=== PATIENT | male | born 1975 | race Two or more races ===

== ENCOUNTER 2023-09-10 13:44 | Emergency (ER) | payer BC, SELFPAY ==
[2023-09-10 13:48] VITALS: BP 180/115; PULSE 97; RESP 18; TEMP 36.5; O2SAT 98; BMI 30.1
--- NOTE | 2023-09-10 14:04 | ED.GENADULT ---
HPI - General Adult General Date Seen: 09/10/23 Chief complaint: Abdominal Pain Stated complaint: Abdonimal and bowel pain Time Seen by Provider: 09/10/23 14:04 History of Present Illness HPI narrative: 48-year-old male presenting to the ER today for pain involving his she left side of his torso including his left lower ribs, back, and abdominal pain. Pain is been ongoing for about a week and getting steadily worse. His pain is more significant in the morning intense to get better through the day. The pain is mostly located in his left upper quadrant and epigastrium but also a little bit in his left flank and left lower ribs. It is painful it hurts to take a deep breath. He is not having any fever. No vomiting or diarrhea. He is nauseous today. He did pass normal stool last night. He has also had a cough with production of sputum that is been present for about a month or so. Initially the cough he thought was from cold got better then came back a couple of weeks ago. It has been productive of a lot of green sputum. No fevers. No shortness of breath He has diabetes and is supposed to be taking insulin but it sounds like he does not take it every day. He does not routinely track his blood sugar. no recent travel. No weight loss. No recent night sweats. Related Data Previous Rx's Medication Instructions Recorded doxycycline hyclate 100 mg capsule 100 mg PO BID #14 caps 09/10/23 omeprazole 40 mg capsule,delayed 40 mg PO DAILY #20 caps 09/10/23 release Allergies Allergy/AdvReac Type Severity Reaction Status Date / Time No Known Drug Allergies Allergy Verified 09/10/23 13:55 [facility] Social History Smoking Status: Never smoker How often do you have a drink containing alcohol: never AUDIT-C Alcohol total score: 0 Non-prescribed substance use: denies use service: No Exam Narrative: Exam Narrative: Constitutional: Appears well-developed and well-nourished. Alert. Conversant. Non toxic. HENT: Head: Atraumatic. Nose: Nose normal. Mouth/Throat: Oral mucosa is clear and moist. no trismus. Pharynx normal. Tonsils symmetric. No tonsillar enlargement, erythema, or exudate. Eyes: Conjunctivae normal. EOM normal. Pupils equal, round, and reactive to light. No scleral icterus. Neck: Normal range of motion. Neck supple. No tracheal deviation present. Cardiovascular: Normal rate, regular rhythm. No gallop. No friction rub. No murmur heard. Symmetric radial artery pulses Pulmonary/Chest: Effort normal. No stridor. No respiratory distress. No wheezes. No rales. No rhonchi . No tenderness. Abdominal: Soft. Bowel sounds diminished. No distension. No mass. LUQ> epigastric tenderness. No rebound. No guarding. No right-sided tenderness. No Dave side. No lower abdominal tenderness. Perhaps mild left CVA tenderness. No right sided CVA tenderness. Musculoskeletal: RUE: Normal range of motion. No tenderness. No deformity LUE: Normal range of motion. No tenderness. No deformity RLE: Normal range of motion. No edema. No tenderness. No deformity LLE: Normal range of motion. No edema. No tenderness. No deformity Neurological: Alert and oriented to person, place, and time. Normal strength. CN II-VII intact. No sensory deficit. GCS eye subscore is 4. GCS verbal subscore is 5. GCS motor subscore is 6. Normal coordination Skin: Skin is warm and dry. No rash noted. No pallor. Normal capillary refill. Psychiatric: Normal mood. Normal affect. Const: Vital Signs, click to edit/add: Vital Signs - 24 hr 09/10/23 13:48 09/10/23 17:57 Temperature 97.7 F Pulse Rate [Pulse Oximeter] 97 90 Respiratory Rate 18 20 Blood Pressure [Ri ght Upper Arm] 180/115 H 193/148 H Pulse Oximetry 98 Oxygen Delivery Me thod Room Air Course Vital Signs Vital signs: Initial Vital Signs Temperature 97.7 F 09/10/23 13:48 Temperature Source Temporal Artery Scan 09/10/23 13:48 Pulse Rate 97 09/10/23 13:48 Pulse Rhythm Regular 09/10/23 13:48 Pulse Strength 3+ Normal 09/10/23 13:48 Respiratory Rate 18 09/10/23 13:48 Blood Pressure 180/115 H 09/10/23 13:48 Blood Pressure Mean 136 H 09/10/23 13:48 Blood Pressure Position Supine 09/10/23 13:48 Pulse Oximetry 98 09/10/23 13:48 Oxygen Delivery Method Room Air 09/10/23 13:48 Vital Signs Temperature 97.7 F 09/10/23 13:48 Pulse Rate 97 09/10/23 13:48 Respiratory Rate 18 09/10/23 13:48 Blood Pressure 180/115 H 09/10/23 13:48 Pulse Oximetry 98 09/10/23 13:48 Oxygen Delivery Method Room Air 09/10/23 13:48 Temperature 97.7 F 09/10/23 13:48 Pulse Rate 90 09/10/23 17:57 Respiratory Rate 20 09/10/23 17:57 Blood Pressure 193/148 H 09/10/23 17:57 Pulse Oximetry 98 09/10/23 13:48 Oxygen Delivery Method Room Air 09/10/23 13:48 Medical Decision Making MDM Narrative Medical decision making narrative: This is a very pleasant 48-year-old male with a history of hypertension and diabetes who presents to the ER today with cough ongoing for the past several weeks now productive for the past week or so and also left upper quadrant, left flank, left lower rib pain. In terms of the cough, chest x-ray is negative for pneumonia. Given duration of cough would hold off on influenza/COVID PCR. He is well outside the window for any treatment with Tamiflu or Paxlovid. Chest x-ray is obtained is fortunately negative for any sign of a left lower with infiltrate, left-sided pleural effusion or empyema, or left-sided rib fracture. He is not having any wheezing or bronchospasm on his clinical exam. No exam evidence for chest wall bruising or shingles. Location of the cough not consistent with costochondritis. Consider intra-abdominal causes for his left upper quadrant abdominal pain. Laboratory workup shows no evidence for of pancreatitis. White count 10 hemoglobin are normal. No evidence for LFT abnormality or right upper quadrant tenderness suggest biliary colic. Urinalysis normal. CT scan is obtained and shows no evidence for obstructing kidney stone. No evidence for any splenic enlargement or other splenic abnormality causing left upper quadrant abdominal pain. No evidence for diverticulitis, colitis, bowel obstruction, perforation, abscess. No right lower quadrant pain and no radiographic abnormality to suggest appendicitis. At this point the etiology the pain is unclear. Consider possible gastritis or peptic ulcer disease which would be not not detectable on labs and CT imaging. At this point no evidence for any GI bleeding based on absence of any melanotic stools and normal hemoglobin and normal vitals. Patient is comfortable plan for discharge home. Recommend close outpatient follow-up the primary care for recheck. Also to help better manage his ongoing diabetes and high blood pressure. Reviewed with him that uncontrolled diabetes and high blood pressure can lead to long-term health problems and he agrees to follow-up. Prescription for omeprazole to treat empirically for pop supple peptic ulcer disease and for antibiotic to treat his cough. No clear evidence for pneumonia but based on duration of cough and new worsening purulence we will put him on a course of antibiotics Lab Data Labs: Lab Results 09/10/23 09/10/23 Range/Units 14:30 14:35 WBC 7.18 (4.50-11.00) K/uL RBC 5.23 (4.30-5.90) m/uL Hgb 15.0 (13.5-17.5) gm/dL Hct 43.1 (37.0-53.0) % MCV 82 (80-100) fL MCH 29 (26-34) pg MCHC 35 (32-36) gm/dL RDW Coeff of Lizeth 11.6 (11.5-15.5) % Plt Count 251 (140-440) K/uL Neut % (Auto) 62.7 (42.0-72.0) % Lymph % (Auto) 28.0 (20-44) % Rains % (Auto) 6.5 (0.0-11.0) % Eos % (Auto) 1.7 (0.0-7.0) % Baso % (Auto) 0.4 (0.0-3.0) % Neut # (Auto) 4.50 (1.7-7.0) K/uL Lymph # (Auto) 2.01 (0.90-2.90) K/uL Rains # (Auto) 0.50 (0.00-0.90) K/UL Eos # (Auto) 0.12 (0.00-0.50) K/uL Baso # (Auto) 0.03 (0.00-0.30) K/uL Abs Immat Gran (auto) 0.05 (0.00-0.30) K/uL Imm/Tot Granulo (auto) 0.7 % Sodium 137 (135-149) mmol/L Potassium 3.5 L (3.6-5.1) mmol/L Chloride 101 (96-114) mmol/L Carbon Dioxide 30 (20-32) mmol/L Anion Gap 6 L (7-15) mEq/L BUN 16 (7-30) mg/dL Creatinine 0.7 (0.5-1.5) mg/dL Estimated Creat Clear 122.14 Estimated GFR 112 ml/min Glucose 345 H (60-115) mg/dL Lactate 1.4 (0.5-1.9) mmol/L Calcium 9.3 (8.4-10.6) mg/dL Total Bilirubin 0.6 (0.1-1.5) mg/dL AST 24 (12-35) U/L ALT 23 (4-50) U/L Alkaline Phosphatase 96 (40-150) U/L Total Protein 8.1 (6.0-8.3) g/dL Albumin 4.5 (3.3-5.0) g/dL Lipase 158 (23-300) U/L Urine Color Yellow (Yellow) Urine Appearance Clear (Clear) Urine pH 6.5 (5.0-8.5) Ur Specific [place] 1.015 (1.000-1.030) Urine Protein Negative (Negative) Urine Glucose (UA) 2+ A (Negative) Urine Ketones Negative (Negative) Urine Blood Negative (Negative) Urine Nitrite Negative (Negative) Urine Bilirubin Negative (Negative) Urine Urobilinogen 1.0 (0.2-1.0) Ur Leukocyte Esterase Negative (Negative) Urine RBC 0-2 (0-2) Urine WBC 0-2 (0-5) Ur Squamous Epith Cells None (None-Few) Urine Bacteria None (None) Imaging Data Chest x-ray: Attestation: I have reviewed the pertinent imaging results. My impression: No acute infiltrate, pulmonary edema, pleural effusion, rib fracture. Cardiac silhouette normal. Radiologist's impression: Findings/Impression: Cardiovascular and mediastinum: Heart size and vasculature are normal in caliber and appearance. Mediastinum is within normal limits. Lungs and pleural spaces: Lungs are clear. No sign of infiltrate or mass. No sign of pleural effusion. No pneumothorax. Bones and soft tissues: No significant findings. CT scan - abdomen: Attestation: I have reviewed the pertinent imaging results. Radiologist's impression: Impression: Negative study/no CT findings to explain the given history. ECG Data Attestation: I personally reviewed and interpreted this ECG as follows: Interpretation: Normal sinus rhythm rate 79 SC 178 QRS axis n left axis deviation.. Left anterior fascicular block. ST segment/T wave: No ST segment elevation or depression QTc: 435 Discharge Plan Discharge Clinical Impression: Abdominal pain, LUQ, Cough Patient Disposition: Home, Self-Care Condition: Stable Instructions: Abdominal Pain (ED), Acute Cough (ED) Additional Instructions: As we discussed, please follow-up with your doctor in [place] as soon as you are able. If he need to make an appointment with a new doctor you can call the [facility] at [phone] to schedule a new primary care appointment. If you have any worsening pain, fever, vomiting blood, bloody or black stools, worsening cough or trouble breathing, please come back to the ER right away. At this point the cause for your pain is not clear. It is possible the your pain could be caused by stomach acid. Try the stomach acid medicine (omeprazole) once daily for 2 weeks to see if her pain gets better. Use the antibiotics to help treat your cough. Prescriptions: New omeprazole 40 mg capsule,delayed release(DR/EC) 40 mg PO DAILY Qty: 20 2RF doxycycline hyclate 100 mg capsule 100 mg PO BID Qty: 14 0RF Follow Up/Referrals: Bryant Bey MD [Primary Care Provider] - Stand Alone Forms: [employer] Info Instructions
--- NOTE | 2023-09-10 14:27 | XR_ITS ---
Patient: JOANN JOYNER Facility:?[facility] Patient ID:?[id number] Site Patient ID:?[id number]. Site :?[id number] Study:?XRay-Chest 2V-09/10/2023 2:46:01 PM Ordering Physician:?DR. STRAUSS Final Report: Indication: Abdominal and bowel pain Technique: Chest 2 views Comparison: None Findings/Impression: Cardiovascular and mediastinum: Heart size and vasculature are normal in caliber and appearance. Mediastinum is within normal limits. Lungs and pleural spaces: Lungs are clear. No sign of infiltrate or mass. No sign of pleural effusion. No pneumothorax. Bones and soft tissues: No significant findings. Dictated by Jacek Talamantes MD @ 09/10/2023 3:13:12 PM Signed by:?Jacek Talamantes MD @09/10/2023 3:13:12 PM (Electronic Signature)
[2023-09-10 14:38] LABS: Lactate* 1.4 mmol/L (0.5-1.9)
[2023-09-10 14:42] LABS: Appearance Urine Clear (Clear); Bilirubin Urine Negative (Negative); Blood Urine Negative (Negative); Color Urine Yellow (Yellow); Glucose Urine 2+ (Negative); Ketones Urine Negative (Negative); Leukocyte Esterase Urine Negative (Negative); Nitrite Urine Negative (Negative); Protein Urine Negative (Negative); Specific Gravity Urine 1.015 (1.000-1.030); pH Urine 6.5 (5.0-8.5)
[2023-09-10 14:43] LABS: Basophils Absolute Auto 0.03 K/uL (0.00-0.30); Basophils Percent Auto 0.4 % (0.0-3.0); Eosinophils Absolute Auto 0.12 K/uL (0.00-0.50); Eosinophils Percent Auto 1.7 % (0.0-7.0); Hematocrit 43.1 % (37.0-53.0); Immature Granulocytes Abs Auto 0.05 K/uL (0.00-0.30); Immature Granulocytes Pct Auto 0.7 %; Lymphocytes Absolute Auto 2.01 K/uL (0.90-2.90); Mean Corpuscular HGB Conc 35 gm/dL (32-36); Mean Corpuscular Hemoglobin 29 pg (26-34); Mean Corpuscular Volume 82 fL (80-100); Monocytes Percent Auto 6.5 % (0.0-11.0); Neutrophils Percent Auto 62.7 % (42.0-72.0); Platelet Count* 251 K/uL (140-440); RDW Coefficient of Variation % 11.6 % (11.5-15.5); Red Blood Count 5.23 m/uL (4.30-5.90); White Blood Count* 7.18 K/uL (4.50-11.00)
[2023-09-10 14:49] LABS: RBC Urine 0-2 (0-2); WBC Urine 0-2 (0-5)
[2023-09-10 14:55] LABS: Slide Review Reflex No
[2023-09-10 14:57] LABS: Albumin* 4.5 g/dL (3.3-5.0); Chloride* 101 mmol/L (96-114)
[2023-09-10 14:58] LABS: Potassium* 3.5 mmol/L (3.6-5.1); Sodium* 137 mmol/L (135-149)
[2023-09-10 15:00] LABS: Alkaline Phosphatase* 96 U/L (40-150); Anion Gap 6 mEq/L (7-15); Aspartate Amino Transferase* 24 U/L (12-35); Bilirubin Total* 0.6 mg/dL (0.1-1.5); Carbon Dioxide* 30 mmol/L (20-32); Creatinine* 0.7 mg/dL (0.5-1.5); Est. Creatinine Clearance* 122.14; Estimated Glomerular Filt Rate 112 ml/min; Total Protein* 8.1 g/dL (6.0-8.3)
[2023-09-10 15:01] LABS: Alanine Aminotransferase* 23 U/L (4-50); Blood Urea Nitrogen* 16 mg/dL (7-30); Calcium* 9.3 mg/dL (8.4-10.6); Glucose* 345 mg/dL (60-115); Lipase* 158 U/L (23-300)
--- NOTE | 2023-09-10 16:17 | CT_ITS ---
Patient: JOANN JOYNER Facility:?[facility] Patient ID:?[id number] Site Patient ID:?[id number]. Site :?[id number] Study:?CT-Abdomen/Pelvis W/ ISOVUE 370-09/10/2023 4:45:32 PM Ordering Physician:GIOVANI Final Report: Indication: RUQ PAIN AND EPIGASTRIC PAIN FLANK AND UPPER BACK Technique: CT abdomen and pelvis with intravenous contrast, 97 cc of Isovue 370 intravenously. Please note that all CT scans at this facility use dose modulation, iterative reconstruction, and/or weight-based dosing when appropriate to reduce radiation dose to as low as reasonably achievable. Comparison: None. Findings: The lower chest is clear. The liver, gallbladder, spleen, adrenal glands, pancreas and right kidney are normal. Small cyst is noted within the left kidney which is otherwise unremarkable. The urinary bladder is grossly unremarkable. The prostate is normal in size. There are no pelvic cysts or masses. The hollow viscera are without obstruction, focal bowel wall thickening or adjacent inflammatory stranding. The appendix is not visualized, correlate for surgical absence. There is no free air, ascites or lymphadenopathy. The aorta is patent and normal in course and caliber with mild atherosclerotic calcifications. Bones and soft tissues are age-appropriate.. Impression: Negative study/no CT findings to explain the given history. Please note that all CT scans at this facility use dose modulation, iterative reconstruction, and/or weight-based dosing when appropriate to reduce radiation dose to as low as reasonably achievable. Dictated by Alban Antonio MD @ 09/10/2023 5:11:22 PM Signed by:?Alban Antonio MD @09/10/2023 5:11:22 PM (Electronic Signature)
[2023-09-10 17:57] VITALS: BP 193/148; PULSE 90; RESP 20
== END 2023-09-10 17:58 | disposition home or self-care (01) ==
PROVIDERS: Emergency Provider Emergency Medicine; PCP Family Medicine
DX: R10.12 Left upper quadrant pain (principal)
CPT/HCPCS: 36415; 71046; 74177; 80053; 81001; 83605; 83690; 85025; 93005; 99284; 99285; Q9967

== ENCOUNTER 2023-11-01 15:59 | Emergency (ER) | payer BC, SELFPAY ==
[2023-11-01 16:03] VITALS: BP 178/111; RESP 18; TEMP 36.8; O2SAT 98; BMI 30.7
--- NOTE | 2023-11-01 16:16 | ED.GENADULT ---
HPI - General Adult General Time Seen by Provider: 16:16 <Rere Lopes MD - Last Filed: 11/01/23 16:16> Date Seen: 11/01/23 <Rere Lopes MD - Last Filed: 11/01/23 16:16> Chief complaint: Hypertension <Rere Lopes MD - Last Filed: 11/01/23 16:16> Stated complaint: high blood pressure, vision problems <Rere Lopes MD - Last Filed: 11/01/23 16:16> Time Seen by Provider: 11/01/23 16:16 <Rere Lopes MD - Last Filed: 11/01/23 16:16> Source: patient and RN notes reviewed <Rere Lopes MD - Last Filed: 11/01/23 16:16> Mode of arrival: ambulatory <Rere Lopes MD - Last Filed: 11/01/23 16:16> Limitations: no limitations <Rere Lopes MD - Last Filed: 11/01/23 16:16> History of Present Illness HPI narrative: comes to ed after he was unable to get appointment with Dr at [facility] ([place]) did also go to urgent care and was sent here. has known HTN and feels that the medication is not working. Is on losartan now. had taken lisinopril prior to losartan. 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 no other neuro problems. Has type 2 diabetes . 48-year-old man presenting to the emergency department with concern of of blood pressure medications not working. Went to Urgent Care as was unable to get an appointment with his primary and sent here with concern of a right eye palsy. He is not having any headache. He is not noticing diplopia at this time. No loss of vision. 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 Subsequently had some swelling of his left eye that resulted he says in what he seems to be describing as a palsy of the left eye. 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 Was seen here with abdominal pain about 6 weeks ago and suspected of having dyspepsia. Did have abdominal imaging at that time. Blood pressure also noted to be elevated and was initiated on losartan. He had been prescribed lisinopril but discontinued it about a year ago as after few months of taking it did not feel it was effective. Underlying history also of diabetes. Had not been regularly tracking his blood sugars. Was scheduled for an EGD as ordered by primary, but I do not see that that has been completed yet. Suspected also of possible gastroparesis in the setting of diabetes. He does not have any weaknesses in extremities. No loss of sensation. Most recently about a week ago noticed while driving that he was seeing double. Later he realized that his right eye seem to be deviating. Again the diplopia has resolved he says. No fevers. No rashes. Otherwise no chest pain or shortness of breath. Does note that he has seen an eye doctor indicating an optometry clinic in [place]? [facility]? Reviewing again blood blood sugar control he does say that he has now been keeping good track. Has been around 100 or even below that fasting, regularly. <Hayes Freedman MD - Last Filed: 11/13/23 14:23> Related Data Home medications: Previous Rx's Medication Instructions Recorded insulin glargine 100 unit/mL (3 20 unit (0.2 mL) subcut BID #15 mL 09/23/23 mL) subcutaneous pen (Lantus Solostar U-100 Insulin) losartan 25 mg tablet 25 mg PO QDAY #90 tabs 09/23/23 amlodipine 5 mg tablet 5 mg PO DAILY #30 tabs 11/01/23 <Rere Lopes MD - Last Filed: 11/01/23 16:16> Allergies/adverse reactions: Allergies Allergy/AdvReac Type Severity Reaction Status Date / Time No Known Drug Allergies Allergy Verified 11/01/23 15:28 <Rere Lopes MD - Last Filed: 11/01/23 16:16> Review of Systems Status of ROS: Reports: 6 or more systems reviewed and unremarkable except as noted in History and below <Hayes Freedman MD - Last Filed: 11/13/23 14:23> [facility] Medical History: Medical History Dyspepsia ?R10.13 - Epigastric pain (ICD-10) Hypertension ?I10 - Essential (primary) hypertension (ICD-10) Diabetes ?E11.9 - Type 2 diabetes mellitus without complications (ICD-10) <Rere Lopes MD - Last Filed: 11/01/23 16:16> Social History: Social History Smoking Status: Never smoker Do you use any of these nicotine containing products: None Second hand tobacco smoke exposure: No How often do you have a drink containing alcohol: monthly or less How many standard drinks containing alcohol do you have on a typical day: 1 or 2 How often do you have six or more drinks on one occasion: Never AUDIT-C Alcohol total score: 1 Non-prescribed substance use: denies use Little interest or pleasure in doing things: not at all Feeling down, depressed, or hopeless: not at all service: No <Rere Lopes MD - Last Filed: 11/01/23 16:16> Exam Narrative: Exam Narrative: Very pleasant. Easily conversant; smooth articulation. Skin is warm dry. No rashes noted. Head is atraumatic. Neck is supple. Strong equal carotid upstroke. Pupils are equal at 3 mm and appropriately briskly reactive. Extraocular movements are full although the right eye does not deviate laterally. No extraocular swelling or erythema. The left eye does appear to be slightly more prominent/proud/subtle exophthalmos? than the right. The left eye will deviate medially when using binocular vision, seeming to prefer the right eye though when covering the right eye, the left eye then moves back to midline. He has no sensory or motor loss to his face otherwise. No swellings or erythema appreciated. Lungs are clear. Heart is in a regular rate and rhythm. Abdomen is soft. Extremities are well perfused. He has no peripheral edema. He has full strength throughout without apparent loss of sensation in extremities. Cognitively clear, mentating normally. <Hayes Freedman MD - Last Filed: 11/13/23 14:23> Const: Vital Signs, click to edit/add: Vital Signs - 24 hr 11/01/23 16:03 Temperature 98.3 F Respiratory Rate 18 Blood Pressure [Ri ght Upper Arm] 178/111 H Pulse Oximetry 98 Oxygen Delivery Me thod Room Air <Rere Lopes MD - Last Filed: 11/01/23 16:16> Vital Signs, click to edit/add: Vital Signs - 24 hr 11/01/23 16:03 Temperature 98.3 F Respiratory Rate 18 Blood Pressure [Ri ght Upper Arm] 178/111 H Pulse Oximetry 98 Oxygen Delivery Me thod Room Air <Hayes Freedman MD - Last Filed: 11/13/23 14:23> Documenting provider has reviewed patient's vital signs: yes <Hayes Freedman MD - Last Filed: 11/13/23 14:23> Course Vital Signs Vital signs: Initial Vital Signs Temperature 98.3 F 11/01/23 16:03 Temperature Source Temporal Artery Scan 11/01/23 16:03 Pulse Rhythm Regular 11/01/23 16:03 Respiratory Rate 18 11/01/23 16:03 Blood Pressure 178/111 H 11/01/23 16:03 Blood Pressure Mean 133 H 11/01/23 16:03 Blood Pressure Position Supine 11/01/23 16:03 Pulse Oximetry 98 11/01/23 16:03 Oxygen Delivery Method Room Air 11/01/23 16:03 Vital Signs Temperature 98.3 F 11/01/23 16:03 Respiratory Rate 18 11/01/23 16:03 Blood Pressure 178/111 H 11/01/23 16:03 Pulse Oximetry 98 11/01/23 16:03 Oxygen Delivery Method Room Air 11/01/23 16:03 Temperature 98.3 F 11/01/23 16:03 Respiratory Rate 18 11/01/23 16:03 Blood Pressure 169/109 H 11/01/23 19:04 Pulse Oximetry 98 11/01/23 16:03 Oxygen Delivery Method Room Air 11/01/23 16:03 <Rere Lopes MD - Last Filed: 11/01/23 16:16> Initial Vital Signs Temperature 98.3 F 11/01/23 16:03 Temperature Source Temporal Artery Scan 11/01/23 16:03 Pulse Rhythm Regular 11/01/23 16:03 Respiratory Rate 18 11/01/23 16:03 Blood Pressure 178/111 H 11/01/23 16:03 Blood Pressure Mean 133 H 11/01/23 16:03 Blood Pressure Position Supine 11/01/23 16:03 Pulse Oximetry 98 11/01/23 16:03 Oxygen Delivery Method Room Air 11/01/23 16:03 Vital Signs Temperature 98.3 F 11/01/23 16:03 Respiratory Rate 18 11/01/23 16:03 Blood Pressure 178/111 H 11/01/23 16:03 Pulse Oximetry 98 11/01/23 16:03 Oxygen Delivery Method Room Air 11/01/23 16:03 Temperature 98.3 F 11/01/23 16:03 Respiratory Rate 18 11/01/23 16:03 Blood Pressure 169/109 H 11/01/23 19:04 Pulse Oximetry 98 11/01/23 16:03 Oxygen Delivery Method Room Air 11/01/23 16:03 <Hayes Freedman MD - Last Filed: 11/13/23 14:23> Medications Administered Medications: Discontinued Medications Generic Name Dose Route Start Last Admin Trade Name Freq PRN Reason Stop Dose Admin Amlodipine Besylate 5 mg 11/01/23 19:26 11/01/23 20:05 Amlodipine 5 Mg Tablet PO 11/01/23 19:27 5 mg ONCE ONE Administration <Rere Lopes MD - Last Filed: 11/01/23 16:16> Discontinued Medications Generic Name Dose Route Start Last Admin Trade Name Freq PRN Reason Stop Dose Admin Amlodipine Besylate 5 mg 11/01/23 19:26 11/01/23 20:05 Amlodipine 5 Mg Tablet PO 11/01/23 19:27 5 mg ONCE ONE Administration <Hayes Freedman MD - Last Filed: 11/13/23 14:23> Medical Decision Making MDM Narrative Medical decision making narrative: I think will need MRI of the brain. Curious that he does not currently have diplopia. Does not have evidence otherwise of Grimes's palsy. With history of uncontrolled blood pressure and diabetes would have concerns of cardiovascular and cerebrovascular disease. Will try to get an MRI and then pending this result pursue other vascular imaging is necessary. Likely need at least 2 antihypertensives as has not been controlled on current regimen and maintains that he has been taking his medication regularly. Clarifying medication was not taking lisinopril after initially briefly. However has been taking losartan mostly since prescribed through ER visit 6+ weeks ago. Discussed this case briefly with Neurology on-call. MRI of brain reviewed by me looks to be absent of any acute abnormality or at least no bleed. Radiology over-read as below Study:?MRI-Head W/O-11/01/2023 5:14:19 PM Ordering Physician:HAYES BYRD Final Report: INDICATION: Right eye palsy. TECHNIQUE: Multiplanar multisequence noncontrast MR images of the brain. COMPARISON: None. FINDINGS: The ventricles and sulci are within normal limits for patient age. No mass effect or midline shift. Few punctate FLAIR hyperintensities in the supratentorial white matter, nonspecific. No intracranial hemorrhage or pathologic extra-axial fluid collection. No diffusion restriction to suggest acute infarction. The major arterial flow voids of the skullbase are preserved. The globes are symmetric. Minimal paranasal sinus mucosal thickening. Mastoid air cells are clear. IMPRESSION: 1. No acute infarction, mass effect, or intracranial hemorrhage. 2. Few punctate FLAIR hyperintensities in the cerebral white matter are nonspecific, though most typical for sequelae of migraine headaches or minimal chronic microvascular ischemic changes. Discussed with on-call Ophthalmology locally. Arranging close follow-up. Suspect palsy of unclear origin at this time. Possibly transient ischemia. Will be adding 2nd medication to achieve better blood pressure control. Considering both systolic and diastolic hypertension I think amlodipine might be a good option. Adding TSH as initial screening to labs with concern of mild evidence of exophthalmos. See patient discharge plan for further discussion/plan <Hayes Freedman MD - Last Filed: 11/13/23 14:23> Lab Data Lab results reviewed: Yes I reviewed the patient's lab results <Hayes Freedman MD - Last Filed: 11/13/23 14:23> Labs: Lab Results 11/01/23 Range/Units 19:38 TSH 1.030 (0.270-4.20) uIU/mL <Rere Lopes MD - Last Filed: 11/01/23 16:16> Lab Results 11/01/23 Range/Units 19:38 TSH 1.030 (0.270-4.20) uIU/mL <Hayes Freedman MD - Last Filed: 11/13/23 14:23> Discharge Plan Discharge Clinical Impression: Lateral rectus palsy, Diabetes, Hypertension <Rere Lopes MD - Last Filed: 11/01/23 16:16> Patient Disposition: Home w/ Parent or Adult <Rere Lopes MD - Last Filed: 11/01/23 16:16> Condition: Stable <Rere Lopes MD - Last Filed: 11/01/23 16:16> Additional Instructions: I would return to taking your losartan at 25 mg daily. Will be prescribing amlodipine at 5 mg daily. Sending this into your pharmacy. I would like you to schedule follow-up with your primary care provider in a week if possible. May need to adjust blood pressure medications at that time. It sounds as though you are doing a good job of controlling your blood sugars now. I would follow this up also in primary care. I did speak with Dr. Andujar with [facility] here in [place]. I would anticipate a call from this clinic to arrange follow-up early next week. I would anticipate them calling you on Saturday. <Rere Lopes MD - Last Filed: 11/01/23 16:16> Prescriptions: New amlodipine 5 mg tablet 5 mg PO DAILY Qty: 30 0RF No Action insulin glargine [Lantus Solostar U-100 Insulin] 100 unit/mL (3 mL) insulin pen 20 unit subcut BID Qty: 15 0RF losartan 25 mg tablet 25 mg PO QDAY Qty: 90 3RF <Rere Lopes MD - Last Filed: 11/01/23 16:16> Follow Up/Referrals: Bryant Bey MD [Primary Care Provider] - <Rere Lopes MD - Last Filed: 11/01/23 16:16> Stand Alone Forms: [facility] Info Instructions <Rere Lopes MD - Last Filed: 11/01/23 16:16>
--- NOTE | 2023-11-01 16:43 | MR_ITS ---
Patient: JOANN JOYNER Facility:?[facility] Patient ID:?[id number] Site Patient ID:?[id number] Site :?[id number] Study:?MRI-Head W/O-11/01/2023 5:14:19 PM Ordering Physician:HAYES BYRD Final Report: INDICATION: Right eye palsy. TECHNIQUE: Multiplanar multisequence noncontrast MR images of the brain. COMPARISON: None. FINDINGS: The ventricles and sulci are within normal limits for patient age. No mass effect or midline shift. Few punctate FLAIR hyperintensities in the supratentorial white matter, nonspecific. No intracranial hemorrhage or pathologic extra-axial fluid collection. No diffusion restriction to suggest acute infarction. The major arterial flow voids of the skullbase are preserved. The globes are symmetric. Minimal paranasal sinus mucosal thickening. Mastoid air cells are clear. IMPRESSION: 1. No acute infarction, mass effect, or intracranial hemorrhage. 2. Few punctate FLAIR hyperintensities in the cerebral white matter are nonspecific, though most typical for sequelae of migraine headaches or minimal chronic microvascular ischemic changes. Dictated by Arsen Villa MD @ 11/01/2023 5:30:35 PM Signed by:?Arsen Villa MD @11/01/2023 5:30:35 PM (Electronic Signature
[2023-11-01 19:04] VITALS: BP 169/109
[2023-11-01] MEDS: AMLODIPINE 5 MG TABLET PO (20:05)
== END 2023-11-01 20:05 | disposition home or self-care (01) ==
PROVIDERS: Emergency Provider Family Medicine; PCP Family Medicine
DX: I10 Essential (primary) hypertension (principal); E11.9 Type 2 diabetes mellitus without complications; H49.22 Sixth [abducent] nerve palsy, left eye
CPT/HCPCS: 36415; 70551; 84443; 99284; A9270